=== PATIENT | male | born 1965 | race Caucasian/White ===

== ENCOUNTER 2019-10-05 19:14 | Emergency (ER) | payer SELFPAY ==
[~2019-10-05] VITALS: Ht 170.2 cm; Wt 81.6 kg
[2019-10-05] MEDS: CEFTRIAXONE 1 G in IV D5W 50 ML IV ONE ×2
--- NOTE | 2019-10-05 19:20 | NUR ---
MELISSA FROM STREET. PT AAOX1 (TO NAME). PER RA PT ETOH NOTED AND WAS FOUND ON GROUND ROLLING AROUND. UPON ASSESSMENT RR EVEN AND UNLABORED, PT DENIES PAIN, PLACED IN GOWN AND ON MONITOR. VSS, NO ACUTE DISTRESS NOTED. PA AT BEDSIDE FOR EVAL. WILL CONTINUE TO MONITOR.
[2019-10-05] MEDS: IV NS 0.9% 1,000 ML BAG IV ONE ×2 (19:30→19:53)
--- NOTE | 2019-10-05 19:36 | NUR ---
urine collected and sent to lab, fluids started. vss.
[2019-10-05 19:52] LABS: BILIRUBIN,URINE SMALL (NEGATIVE); BLOOD, URINE Large Ery/uL (NEGATIVE); KETONES,URINE 15 (NEGATIVE); LEUKOCYTE ESTERASE ,URINE Negative (NEGATIVE); NITRITE, URINE Positive (NEGATIVE); PH,URINE 5.5 (5.0-8.0); PROTEIN,URINE 30 mg/dl (NEGATIVE); UGLUCOSE Negative (NEGATIVE); UROBILINOGEN,URINE 0.2 EU/dL (0.2)
[2019-10-05 19:55] LABS: APPEARANCE,URINE SLIGHTLY HAZY (CLEAR); COLOR,URINE DARK YELLOW (YELLOW)
[2019-10-05 19:56] LABS: BACTERIA,URINE Few /HPF (None Seen); MUCUS,URINE Moderate /LPF (None Seen); RBC,URINE 21-50 /HPF (0-2); SQUAMOUS EPITHELIAL CELL,UR Rare /HPF (None Seen)
--- NOTE | 2019-10-05 19:56 | NUR ---
Tuan jackson in ED - 10/05/19 at 2133 by ERMIASICTOR PER SISTER, PT HAS HX OF MANIC DISORDER.
--- NOTE | 2019-10-05 20:15 | NUR ---
PHLEBOSOMSIT AT BEDSIDE
[2019-10-05 20:26] LABS: BASOPHILS # (AUTO) 0.1 /CMM (0.0-0.2); BASOPHILS % (AUTO) 0.5 % (0.0-2.0); EOSINOPHILS % (AUTO) 0.4 % (0.0-6.0); HEMATOCRIT 38 % (39-51); HEMOGLOBIN 12.9 g/dL (13.5-17.5); LYMPHOCYTES # (AUTO) 2.3 /CMM (0.8-4.8); LYMPHOCYTES % (AUTO) 11.5 % (20.0-44.0); MEAN CORPUSCULAR HGB CONC 34 g/dl (31.0-36.0); MEAN CORPUSCULAR VOLUME 92 fL (80-96); MONOCYTES # (AUTO) 1.5 /CMM (0.1-1.30); MONOCYTES % (AUTO) 7.3 % (2.0-12.0); NEUTROPHILS # (AUTO) 16.1 /CMM (1.8-8.9); NEUTROPHILS % (AUTO) 80.3 % (43.0-81.0); PLATELET COUNT (AUTO) 241 /CMM (150-450); RED BLOOD CELL COUNT(AUTO) 4.16 MIL/uL (4.5-6.0); WHITE BLOOD COUNT (AUTO) 20.1 K/uL (4.3-11.0)
[2019-10-05 20:35] LABS: CALCIUM, SERUM 8.2 mg/dL (8.5-10.1); CARBON DIOXIDE 23 mmol/L (21-32); CHLORIDE 102 mmol/L (98-107); CREATININE 0.9 mg/dL (0.6-1.3); GLUCOSE 117 mg/dL (74-106); POTASSIUM 3.9 mmol/L (3.5-5.1); SODIUM SERUM 136 mmol/L (136-145); UREA NITROGEN, BLOOD 21 mg/dL (7-18)
[2019-10-05 20:46] LABS: ALANINE AMINOTRANSFERASE 164 U/L (12-78); ALBUMIN 3.3 g/dL (3.4-5.0); ALCOHOL, BLOOD < 3 mg/dL (0-0); ALKALINE PHOSPHATASE 77 U/L (46-116); ASPARTATE AMINOTRANSFERASE 493 U/L (15-37); BILIRUBIN,DIRECT 0.1 mg/dL (0.0-0.2); SALICYLATE < 2.8 mg/dL (2.8-20.0); TOTAL PROTEIN, SERUM 6.5 g/dL (6.4-8.2)
--- NOTE | 2019-10-05 22:03 | NUR ---
Patient is resting comfortably in bed. Easily aroused. VSS.
[2019-10-05] MEDS ORDERED: CEFTRIAXONE 1GM BAG (ER ONLY) 50 ML IV ONE (23:56)
--- NOTE | 2019-10-06 03:16 | NUR ---
Patient is resting comfortably in bed with eyes closed. Easily aroused. VSS.
--- NOTE | 2019-10-06 06:02 | NUR ---
IV removed. Catheter intact and site benign. Pressure and 4x4 applied to site. No bleeding noted.
--- NOTE | 2019-10-06 06:10 | NUR ---
Patient discharged to home in stable condition. Written and verbal after care instructions given. Patient verbalizes understanding of instruction and RX. Pt walked with a steady gait. VSS. RR even and unlabored, Pt denies being homeless. No acute distress noted.
[2019-10-06 06:11] VITALS: BP 132/73
== END 2019-10-06 06:12 | disposition home or self-care (01) ==
LOC: ER 19:21 → EDBD 19:21 → ER 10-06 06:12
DX: R41.82 Altered mental status, unspecified (principal); F15.10 Other stimulant abuse, uncomplicated; N39.0 Urinary tract infection, site not specified; R74.0 Nonspecific elevation of levels of transaminase and lactic acid dehydrogenase [LDH]
CPT/HCPCS: 36415; 70450; 71045; 80048; 80076; 80305; 80307; 80329; 81001; 85025; 96361; 96365; 99285; G0480; J0696; J7060; 81000-TC; 87086-TC

== ENCOUNTER 2019-10-06 11:25 | Inpatient (IN) | payer SELFPAY ==
[~2019-10-06] VITALS: Ht 170.2 cm; Wt 81.6 kg
--- NOTE | 2019-10-06 11:27 | NUR ---
[id number] FRM APARTMENT COMPLEX SLEEPING IN THE BUSHES. BG 97 KILN BURNER HELPER, PT TO BED 15, PT NOTED TO BE ALTERED, PLACEDO N MONITOR, PIV STARTED, LABS SENT, PENDING MD MENDOZA
--- NOTE | 2019-10-06 11:50 | NUR ---
TURNED IN MOVE SHEET, CALLED FOR TELE-BED
[2019-10-06] MEDS ORDERED: CEFTRIAXONE 1GM BAG (ER ONLY) 50 ML IV ONE (11:53)
[2019-10-06 11:54] LABS: BASOPHILS # (AUTO) 0.1 /CMM (0.0-0.2); BASOPHILS % (AUTO) 0.3 % (0.0-2.0); EOSINOPHILS % (AUTO) 0.4 % (0.0-6.0); HEMATOCRIT 40 % (39-51); HEMOGLOBIN 13.7 g/dL (13.5-17.5); LYMPHOCYTES # (AUTO) 1.8 /CMM (0.8-4.8); LYMPHOCYTES % (AUTO) 10.7 % (20.0-44.0); MEAN CORPUSCULAR HGB CONC 34 g/dl (31.0-36.0); MEAN CORPUSCULAR VOLUME 92 fL (80-96); MONOCYTES % (AUTO) 5.8 % (2.0-12.0); NEUTROPHILS % (AUTO) 82.8 % (43.0-81.0); PLATELET COUNT (AUTO) 254 /CMM (150-450); RED BLOOD CELL COUNT(AUTO) 4.37 MIL/uL (4.5-6.0); WHITE BLOOD COUNT (AUTO) 16.9 K/uL (4.3-11.0)
[2019-10-06] MEDS ORDERED: IV NS 0.9% 1,000 ML BAG IV ONE (12:00)
[2019-10-06] MEDS ORDERED: CEFTRIAXONE 1GM BAG (ER ONLY) 1 GM/50 ML PIGGYBACK IV ONE (12:00)
--- NOTE | 2019-10-06 12:00 | NUR ---
PER DR WOLF, URINE WAS COLLECTED ON PREVIOUS VISIT, NO NEED TO COLLECT.
--- NOTE | 2019-10-06 12:08 | NUR ---
Patient will go to 111-1
--- NOTE | 2019-10-06 12:21 | NUR ---
REPORT GIVEN TO KIERRA DIOP FOR [facility] PT WILL BE TRANSPORTED TO 1ST FLOOR VIA ACLS PROTOCOL
[2019-10-06 12:26] LABS: CALCIUM, SERUM 8.6 mg/dL (8.5-10.1); CARBON DIOXIDE 25 mmol/L (21-32); CHLORIDE 103 mmol/L (98-107); GLUCOSE 106 mg/dL (74-106); POTASSIUM 3.9 mmol/L (3.5-5.1); SODIUM SERUM 142 mmol/L (136-145); UREA NITROGEN, BLOOD 24 mg/dL (7-18)
[2019-10-06 12:32] LABS: ALANINE AMINOTRANSFERASE 192 U/L (12-78); ALBUMIN 3.7 g/dL (3.4-5.0); ALKALINE PHOSPHATASE 82 U/L (46-116); ASPARTATE AMINOTRANSFERASE 434 U/L (15-37); BILIRUBIN,DIRECT 0.2 mg/dL (0.0-0.2); BILIRUBIN,TOTAL 0.8 mg/dL (0.2-1.0); TOTAL PROTEIN, SERUM 7.4 g/dL (6.4-8.2)
[2019-10-06 13:02] VITALS: BP 129/75
[2019-10-06] MEDS ORDERED: IV D5/0.45 NACL 1,000 ML IV PRN (13:28)
[2019-10-06] MEDS ORDERED: ONDANSETRON HCL/PF 4 MG/2 ML VIAL IVP PRN (13:30)
[2019-10-06] MEDS ORDERED: MULTIVITAMINS,THERAGRAN 1 UDTAB TABLET PO SCH (13:30)
[2019-10-06] MEDS ORDERED: MAGNESIUM HYDROXIDE 30 ML UDC PO PRN (13:30)
[2019-10-06] MEDS ORDERED: MAG HYDROX/AL HYDROX/SIMETH 30 ML UDC PO PRN (13:30)
[2019-10-06] MEDS ORDERED: THIAMINE HCL 100 MG TABLET PO SCH (13:30)
[2019-10-06] MEDS ORDERED: LORAZEPAM 1 MG TABLET PO PRN (13:30)
[2019-10-06] MEDS ORDERED: ACETAMINOPHEN 325 MG TABLET PO PRN (13:30)
[2019-10-06] MEDS ORDERED: FOLIC ACID 1 MG TABLET PO SCH (13:30)
[2019-10-06] MEDS ORDERED: ZOLPIDEM TARTRATE 5 MG TABLET PO PRN (13:30)
--- NOTE | 2019-10-06 13:30 | NUR ---
RN NOTES PATIENT RECEIVED FROM ER VIA GOURNEY, PATIENT IS ALERT AND ORIENTED, KNOWS HIS NAME AND WHERE HE IS AT. PATIENT SEEMS AGITATED, ANXIOUS AND RESTLESS. MOVES FROM SIDE TO SIDE AND FREQUENTLY GETS OUT OF BED. VITAL SIGNS ARE STABLE, BP WITHIN NORMAL RANGE AT 128/76, HR IN THE 80S AND SATURATING WELL AT 100% AND TEMPERATURE 97.3. DENIES ANY PAIN AT THIS TIME. NSR ON THE TELE MONITOR. IV ON R AC INTACT AND FLUSHED WELL. NO FLUIDS RUNNING AT THE MOMENT. NO S/S OF INFECTION NOTED. DR NOLASCO HAS SEEN THE PATIENT AND ORDERS ARE IN. PATIENT CLEANED, HOSPITAL GOWN IS ON, PT REFUSING ASSESSMENT AND PICTURES TO BE TAKEN. SAFETY MAINTAINED, CALL LIGHT WITHIN REACH, WILL CONTINUE TO MONITOR.
--- NOTE | 2019-10-06 13:33 | NUR ---
PT TRANSPORTED TO 1ST FLOOR
--- NOTE | 2019-10-06 14:00 | NUR ---
RN NOTES CURRENTLY PATIENT IS NPO. ALL PO MEDICATIONS WILL BE HELD. MD AWARE. PER MD CHANGED ATIVAN PO TO IV NO OTHER ORDERS AT THIS TIME.
[2019-10-06] MEDS ORDERED: LORAZEPAM INJ 2 MG/ML VIAL IV PRN (15:30)
--- NOTE | 2019-10-06 15:30 | NUR ---
RN NOTES PATIENT ANXIOUS, ATTEMPTED TO ADMINISTER ATIVAN BUT PATIENT PULLED OUT IV, ATTEMPTED TO PUT IN A NEW IV, PATIENT IS REFUSING. MESSAGED DR NOLASCO, CHANGED PATIENT FROM NPO TO REGULAR DIET. MD AWARE THAT PT IS REFUSING IV TO BE STARTED. HOLDING ALL IV MEDICATIONS AT THIS TIME. SAFETY MEASURES IN PLACE. CALL LIGHT WITHIN REACH. BED IN LOW AND LOCKED POSITION.
--- NOTE | 2019-10-06 15:50 | NUR ---
RN NOTES PATIENT IS ASKING TO LEAVE AMA. REFUSING ALL TREATMENT AND NEW IV TO BE STARTED. MD IS AWARE. REFUSING AN ASSESSMENT, UNABLE TO DO THE ADMISSION DUE TO PATIENT REFUSING TO BE ASSESSED AND TREATED. EXPLAINED THE DRS RECOMMENDATIONS TO THE PATIENT AND PROVIDED THE EDUCATION REGARDING ALL THE NECESSARY TREATMENT. PT STILL REFUSING THE TREATMENT AND WISHES TO GO AGAINST MEDICAL ADVICE. NECESSARY AMA FORMS PROVIDED TO THE PATIENT AND SIGNED BY THE PATIENT. HOMELESS WAIVER FORM ALSO SIGNED AND PLACED IN THE CHART. RISKS OF LEAVING AMA EXPLAINED TO THE PATIENT. BELONGINGS ARE RETURNED TO THE PT AND BELONGING LIST SIGNED. MD IS AWARE THAT THE PATIENT IS LEAVING AMA. VITAL SIGNS ARE STABLE AT THIS TIME. TEMP 97.5, HR AT 90BPM, SATURATING 98% WITH RR AT 18. BP AT 113/70. PATIENT WALKED OUT THE HOSPITAL BY JADON NICHOLS. INCIDENT REPORT FILLED OUT. TELE BOX WAS REMOVED, ID BAND WAS CUT, AND NO IV WAS ON THE PATIENT AT THE TIME WHEN THE PT LEFT. PATIENT SAFETY WAS MAINTAINED, ALL NEED MET.
--- NOTE | 2019-10-06 16:00 | NUR ---
RN NOTE ATIVAN WAS TAKEN OUT FROM [facility] AND WASTED WITH A WITNESS. WHEN ATTEMPTING TO ADMINISTER ATIVAN, PATIENT HAS ALREADY PULLED OUT HIS IV. NOTIFIED CHARGE NURSE, WASTED ENTIRE ATIVAN VIAL WITH A WITNESS, CHARGE NURSE
[2019-10-07] MEDS ORDERED: CEFTRIAXONE 1 G in IV D5W 50 ML IV SCH (12:00)
== END 2019-10-06 16:00 | disposition left against medical advice (07) | DRG 689 ==
LOC: ER 11:27 → TELE1 12:40
PROVIDERS: ADMIT Nurse Practitioner Acute Care; ATTEND Nurse Practitioner Acute Care
DX: N39.0 Urinary tract infection, site not specified (principal); G92 Toxic encephalopathy; N17.0 Acute kidney failure with tubular necrosis; R74.0 Nonspecific elevation of levels of transaminase and lactic acid dehydrogenase [LDH]; D72.829 Elevated white blood cell count, unspecified; R82.6 Abnormal urine levels of substances chiefly nonmedicinal as to source; R40.2413 Glasgow coma scale score 13-15, at hospital admission; Z59.0 Homelessness; B96.89 Other specified bacterial agents as the cause of diseases classified elsewhere
CPT/HCPCS: 36415; 71045-TC; 80048-TC; 80076-TC; 82140-TC; 83605-TC; 83735-TC; 84484-TC; 85025-TC; 85730-TC; 87040-TC; 87081-TC; G0378; G0480; J0696; J2060; J7030; J7060